=== PATIENT | male | born 1935 | race Caucasian/White ===

== ENCOUNTER 2017-03-07 08:43 | Inpatient (IN) | payer OTHER ==
[2017-03-07] MEDS ORDERED: levETIRAcetam 250 MG TABLET (FP) PO ONE (09:27)
[2017-03-07] MEDS ORDERED: levETIRAcetam 500 MG TABLET (FP) PO ONE (09:37)
[2017-03-07 09:38] LABS: BASO % 0.7 % (0-2.0); EOS % 1.3 % (0-4.5); MCH 30.7 pg (25.7-33.7); MCHC 34.5 g/dl (32.0-35.9); MEAN CELL VOLUME 88.9 fl (80-96); MEAN PLT VOLUME 8.1 fl (7.5-11.1); NEUT % 70.6 % (42.8-82.8); PLATELET COUNT 157 K/MM3 (134-434); RDW 14.3 % (11.9-15.9)
[2017-03-07 10:02] LABS: ALBUMIN 3.5 g/dl (3.4-5.0); ALK PHOS 80 U/L (45-117); ANION GAP 6 (8-16); BILIRUBIN,TOTAL 1.3 mg/dL (0.2-1.0); CALCIUM 8.6 mg/dL (8.5-10.1); CO2 27 mmol/L (21-32); CREATININE 0.8 mg/dL (0.7-1.3); GLUCOSE,RANDOM 103 mg/dL (74-106); SGOT/AST 12 U/L (15-37); SGPT/ALT 17 U/L (12-78); TOT PROT 6.4 g/dl (6.4-8.2)
--- NOTE | 2017-03-07 10:38 | PDOC ---
History of Present Illness <Charis Pettit - Last Filed: 03/07/17 12:33> - General History Source: Patient, Fdc Records Exam Limitations: No Limitations - History of Present Illness Initial Comments: 03/07/17 10:39 The patient is a 81 year old male from [facility] with a significant PMH of hypothyroidism, HTN, seizures (on Keppra), lung CA (s/p resection) and AFIB (s/p pacemaker) who presents to the emergency department via EMS s/p confusion and lethargy at approximately 7:15AM. As per longterm, the patients home health aide found the patient lethargic, confused, and unable to form full sentences as well as slightly slurring speech. The patient reports feeling confused himself this morning as well as a reduced appetite. The patient denies urinary or bowel incontinence. The patient denies tongue biting. The patient denies chest pain, shortness of breath, headache and dizziness. Denies fever, chills, nausea, vomit, diarrhea and constipation. Denies dysuria, frequency, urgency and hematuria. Allergies: NKA Past surgical history: Partial lung resection. Pacemaker placement. Social history: No reported cigarette, alcohol, or drug use. PCP: Dr. Miller / Dr. Meadows <Mykel Ding - Last Filed: 03/07/17 13:04> - General Chief Complaint: Seizure Stated Complaint: SEIZURE Time Seen by Provider: 03/07/17 08:53 NIH Stroke Scale - Last Known Well Date/Time & Onset Date Last Known Well: 03/06/17 Time Last Known Well: 22:00 - Initial Evaluation Level of consciousness: Alert Ask patient the month and their age: Answers both correctly Ask patient to open & close eyes; make fist and let go: Obeys both correctly Best gaze (horizontal eye movement): Normal Visual field testing: No visual field loss Facial paresis (Show teeth/raise eyebrows/close eyes tight): Normal symmetrical movement Motor Function: Left Arm: Normal Motor Function: Right Arm: Normal (extends arm 90 (or 45) degrees for 10 seconds without drift Motor Function: Left Leg: Normal (extends leg 30 degrees for 5 seconds without drift) Motor Function: Right Leg: Normal (extends leg 30 degrees for 5 seconds without drift) Limb Ataxia: No ataxia Sensory(Use pinprick test arms,legs,trunk,face/side to side): Normal Best language (Describe picture, name items, read sentences): No Aphasia Dysarthria (read several words): Normal articulation Extinction and Inattention: No abnormality - Total Score NIH Stroke Scale Score: 0 <Charis Pettit - Last Filed: 03/07/17 12:33> Past History - Past Medical History Cancer: Yes (LUNG CA, S/P RESECTION.) Cardiac Disorders: Yes (MVP. A FIB) COPD: No Hypercholesterolemia: Yes Psychiatric Problems: Yes (atypical psychosis) Seizures: Yes Thyroid Disease: Yes - Surgical History Cardiac Surgery: Yes (pacemaker) Cholecystectomy: No - Immunization History Td Vaccination: Yes - Suicide/Smoking/Psychosocial Hx Smoking Status: No Smoking History: Never smoked Years of Tobacco Use: 0 Have you smoked in the past 12 months: No Number of Cigarettes Smoked Daily: 0 Cigars Per Day: 0 Information on smoking cessation initiated: No Hx Alcohol Use: No Drug/Substance Use Hx: No Substance Use Type: None Hx Substance Use Treatment: No <Charis Pettit - Last Filed: 03/07/17 12:33> <Mykel Ding - Last Filed: 03/07/17 13:04> - Past Medical History Allergies/Adverse Reactions: Allergies Allergy/AdvReac Type Severity Reaction Status Date / Time No Known Allergies Allergy Verified 01/18/16 16:12 Home Medications: Ambulatory Orders Ascorbate Calcium [Vitamin C] 500 mg PO BID 04/27/14 Cholecalciferol (Vitamin D3) [Vitamin D3] 1,000 mg PO DAILY 04/27/14 Levetiracetam [Keppra -] 750 mg PO BID 04/27/14 Levothyroxine [Synthroid -] 100 mcg PO DAILY 04/27/14 Mirtazapine [Remeron -] 7.5 mg PO DAILY 04/27/14 Multivitamins [Multivit ([facility] Formulary)] 1 tab PO DAILY 04/27/14 Risperidone 0.25 mg PO BID 04/27/14 Acetaminophen [Tylenol] 325 mg PO BID 03/07/17 Review of Systems - Review of Systems Able to Perform ROS?: Yes Comments:: 03/07/17 10:39 GENERAL/CONSTITUTIONAL: (+) Lethargic. (+) Reduced appetite. No fever or chills. HEAD, EYES, EARS, NOSE AND THROAT: No change in vision. No ear pain or discharge. No sore throat. CARDIOVASCULAR: No chest pain or shortness of breath. RESPIRATORY: No cough, wheezing, or hemoptysis. GASTROINTESTINAL: No nausea, vomiting, diarrhea or constipation. GENITOURINARY: No dysuria, frequency, or change in urination. MUSCULOSKELETAL: No joint or muscle swelling or pain. No neck or back pain. SKIN: No rash NEUROLOGIC: (+) Confusion. (+) Slurred speech. No headache, vertigo, loss of consciousness. ENDOCRINE: No increased thirst. No abnormal weight change. HEMATOLOGIC/LYMPHATIC: No anemia, easy bleeding, or history of blood clots. ALLERGIC/IMMUNOLOGIC: No hives or skin allergy. <Mykel Ding - Last Filed: 03/07/17 13:04> *Physical Exam - Vital Signs Last Vital Signs Temp Pulse Resp BP Pulse Ox 98.5 F 71 16 149/89 99 03/07/17 08:50 03/07/17 08:50 03/07/17 08:50 03/07/17 08:50 03/07/17 08:50 <Charis Pettit - Last Filed: 03/07/17 12:33> - Vital Signs Last Vital Signs Temp Pulse Resp BP Pulse Ox 98.5 F 71 16 149/89 99 03/07/17 08:50 03/07/17 08:50 03/07/17 08:50 03/07/17 08:50 03/07/17 08:50 - Physical Exam Comments: 03/07/17 10:39 GENERAL: (+) Thin. (+) Cachetic. Awake, alert, and fully oriented, in no acute distress HEAD: No signs of trauma EYES: PERRLA, EOMI, sclera anicteric, conjunctiva clear ENT: Auricles normal inspection, hearing grossly normal, nares patent, oropharynx clear without exudates. Moist mucosa NECK: Normal ROM, supple, no lymphadenopathy, JVD, or masses LUNGS: Breath sounds equal, clear to auscultation bilaterally. No wheezes, and no crackles HEART: Regular rate, normal S1 and S2, no murmurs, rubs or gallops ABDOMEN: Soft, nontender, normoactive bowel sounds. No guarding, no rebound. No masses EXTREMITIES: Normal range of motion, no edema. No clubbing or cyanosis. No cords, erythema, or tenderness NEUROLOGICAL: AO x3. Cranial nerves II through XII grossly intact. Normal speech. SKIN: Warm, Dry, normal turgor, no rashes or lesions noted. <Mykel Ding - Last Filed: 03/07/17 13:04> ED Treatment Course - LABORATORY CBC & Chemistry Diagram: 03/07/17 09:32 03/07/17 09:32 - ADDITIONAL ORDERS Additional order review: Laboratory Results 03/07/17 09:32 Sodium 140 Potassium 4.2 Chloride 107 Carbon Dioxide 27 Anion Gap 6 L BUN 24 H Creatinine 0.8 Creat Clearance w eGFR > 60 Random Glucose 103 D Calcium 8.6 Total Bilirubin 1.3 H D AST 12 L D ALT 17 Alkaline Phosphatase 80 Total Protein 6.4 Albumin 3.5 03/07/17 09:32 RBC 3.95 L MCV 88.9 MCHC 34.5 RDW 14.3 MPV 8.1 Neutrophils % 70.6 D Lymphocytes % 17.3 D Monocytes % 10.1 Eosinophils % 1.3 Basophils % 0.7 - Medications Given in the ED: ED Medications Discontinued Medications Generic Name Dose Route Start Last Admin Trade Name Freq PRN Reason Stop Dose Admin Levetiracetam 750 mg 03/07/17 09:27 03/07/17 09:38 Keppra - PO 03/07/17 09:28 750 mg ONCE ONE Administration <Charis Pettit - Last Filed: 03/07/17 12:33> - LABORATORY CBC & Chemistry Diagram: 03/07/17 09:32 03/07/17 09:32 - ADDITIONAL ORDERS Additional order review: Laboratory Results 03/07/17 09:32 Sodium 140 Potassium 4.2 Chloride 107 Carbon Dioxide 27 Anion Gap 6 L BUN 24 H Creatinine 0.8 Creat Clearance w eGFR > 60 Random Glucose 103 D Calcium 8.6 Total Bilirubin 1.3 H D AST 12 L D ALT 17 Alkaline Phosphatase 80 Total Protein 6.4 Albumin 3.5 03/07/17 09:32 RBC 3.95 L MCV 88.9 MCHC 34.5 RDW 14.3 MPV 8.1 Neutrophils % 70.6 D Lymphocytes % 17.3 D Monocytes % 10.1 Eosinophils % 1.3 Basophils % 0.7 - Medications Given in the ED: ED Medications Discontinued Medications Generic Name Dose Route Start Last Admin Trade Name Karishma PRN Reason Stop Dose Admin Levetiracetam 750 mg 03/07/17 09:27 03/07/17 09:38 Keppra - PO 03/07/17 09:28 750 mg ONCE ONE Administration - Additional Consults Consult/PCP: Dr. Collado (Neurology) <Mykel Ding - Last Filed: 03/07/17 13:04> Medical Decision Making - Medical Decision Making 03/07/17 11:22 Pt presents to the ED after found in bed with transient episode of confusion. History of seizure disorder for which he takes keppra. No tongue biting, bowel or bladder incontinence. Now is alert and oriented and neurologically intact. Morning dose of keppra given. Labs checked to rule out electrolyte disturbance and are negative. 03/07/17 11:32 03/07/17 12:[address] Montenegro, who is injection molding technician for Dr. Meadows. She is concerned that the patient's symptoms may represent TIA, and would like the patient admitted for TIA work up. Patient has pacemaker, so will not order MRI. <Charis Pettit - Last Filed: 03/07/17 12:33> *DC/Admit/Observation/Transfer - Discharge Dispostion Admit: Yes <Charis Pettit - Last Filed: 03/07/17 12:33> - Attestations Scribe Attestion: 03/07/17 10:39 Documentation prepared by Mykel Ding, acting as medical record technician for Charis Pettit MD. <Mykel Ding - Last Filed: 03/07/17 13:04> Diagnosis at time of Disposition: TIA (transient ischemic attack) Qualifiers: Transient cerebral ischemia type: other Qualified Code(s): G45.8 - Other transient cerebral ischemic attacks and related syndromes - Discharge Dispostion Disposition: HOME Condition at time of disposition: Good
--- NOTE | 2017-03-07 13:56 | HP ---
Admitting History and Physical - Primary Care Physician PCP: Haroldo Meadows - Admission History of Present Illness: The patient is a 81 year old male from [facility] [place] with a significant PMH of hypothyroidism, HTN, seizures (on Keppra), lung CA (s/p resection) and AFIB (s/p pacemaker) who presents to the emergency department via EMS s/p confusion and lethargy at approximately 7:15AM. As per group home, the patients home health aide found the patient lethargic, confused, and unable to form full sentences as well as slightly slurring speech. The patient reports feeling confused himself this morning as well as a reduced appetite. The patient denies urinary or bowel incontinence. The patient denies tongue biting. The patient denies chest pain, shortness of breath, headache and dizziness. Denies fever, chills, nausea, vomit, diarrhea and constipation. Denies dysuria, frequency, urgency and hematuria. Allergies: NKA Past surgical history: Partial lung resection. Pacemaker placement. Social history: No reported cigarette, alcohol, or drug use. PCP: Dr. Miller / Dr. 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 Cardiovascular: Yes: AFIB Heme/Onc: Yes: Other (lung cancer) Endocrine: Yes: Hypothyroidism - Smoking History Smoking history: Never smoked Have you smoked in the past 12 months: No Aproximately how many cigarettes per day: 0 - Alcohol/Substance Use Hx Alcohol Use: No Home Medications - Allergies Allergies/Adverse Reactions: Allergies Allergy/AdvReac Type Severity Reaction Status Date / Time No Known Allergies Allergy Verified 01/18/16 16:12 - Home Medications Home Medications: Ambulatory Orders Ascorbate Calcium [Vitamin C] 500 mg PO BID 04/27/14 Cholecalciferol (Vitamin D3) [Vitamin D3] 1,000 mg PO DAILY 04/27/14 Levetiracetam [Keppra -] 750 mg PO BID 04/27/14 Levothyroxine [Synthroid -] 100 mcg PO DAILY 04/27/14 Mirtazapine [Remeron -] 7.5 mg PO DAILY 04/27/14 Multivitamins [Multivit ([facility] Formulary)] 1 tab PO DAILY 04/27/14 Risperidone 0.25 mg PO BID 04/27/14 Acetaminophen [Tylenol] 325 mg PO BID 03/07/17 Review of Systems - Review of Systems Constitutional: reports: Other Neurological: reports: Other (awake alert no slurring of speech able to move extermites) Physical Examination Vital Signs: Vital Signs Temperature 98.5 F 03/07/17 08:50 Pulse Rate 62 03/07/17 11:28 Respiratory Rate 14 03/07/17 11:28 Blood Pressure 129/92 03/07/17 11:28 O2 Sat by Pulse Oximetry (%) 100 03/07/17 11:28 patient seen in ER now talking full sentences able to move extremities feels tired Constitutional: Yes: Calm, Thin Cardiovascular: Yes: Regular Rate and Rhythm, S1, S2 Respiratory: Yes: CTA Bilaterally Gastrointestinal: Yes: Normal Bowel Sounds, Soft Edema: No Neurological: Yes: Alert, Oriented Labs: CBC, BMP 03/07/17 09:32 03/07/17 09:32 Imaging - Results Cat Scan: Pending Problem List - Problems (1) TIA (transient ischemic attack) Assessment/Plan: observation admission neuro checks neurolgy evaluation given history of afib and seizure will admit for obsevation carotid doppler echo dvt ppx if all test are ok and no changes in mental status seen like seizure or slurring of speech then will send back tmw patient has a pacemaker on [facility] check level Code(s): G45.9 - TRANSIENT CEREBRAL ISCHEMIC ATTACK, UNSPECIFIED Qualifiers: Transient cerebral ischemia type: other Qualified Code(s): G45.8 - Other transient cerebral ischemic attacks and related syndromes (2) Hypothyroid Assessment/Plan: check tsh on synthroid Code(s): E03.9 - HYPOTHYROIDISM, UNSPECIFIED
[2017-03-07] MEDS: risperiDONE 0.25 MG TABLET (FP) PO SCH (22:15)
[2017-03-07] MEDS: MIRTAZAPINE 15 MG TABLET (FP) PO SCH (22:15)
[2017-03-07] MEDS: levETIRAcetam 250 MG TABLET (FP) PO SCH (22:15)
[2017-03-07] MEDS: HEPARIN NA (PORCINE) 5,000 UNITS/ML 1ML VIAL SQ SCH (22:15)
[2017-03-08 01:03] VITALS: BMI 14.1
[2017-03-08] MEDS: LEVOTHYROXINE NA 100 MCG TABLET (FP) PO SCH (06:50)
[2017-03-08 08:06] LABS: INR 1.05 (0.82-1.09); PROTHROMBIN TIME (PATIENT) 11.9 SEC (9.98-11.88)
[2017-03-08 08:08] LABS: ACTIVATED PTT 28.9 SECONDS (26.9-34.4)
[2017-03-08 08:09] LABS: ALBUMIN 3.5 g/dl (3.4-5.0); ANION GAP 8 (8-16); CALCIUM 9.3 mg/dL (8.5-10.1); CO2 27 mmol/L (21-32); GLUCOSE,RANDOM 91 mg/dL (74-106); MAGNESIUM 1.8 mg/dL (1.8-2.4); SGOT/AST 11 U/L (15-37); SGPT/ALT 15 U/L (12-78)
[2017-03-08 08:12] LABS: ALK PHOS 76 U/L (45-117); BILIRUBIN,TOTAL 1.4 mg/dL (0.2-1.0); CREATININE 0.8 mg/dL (0.7-1.3); TOT PROT 6.2 g/dl (6.4-8.2)
[2017-03-08 09:19] LABS: THYROID STIMULATING HORMONE 2.08 uIU/ml (0.358-3.74)
--- NOTE | 2017-03-08 09:54 | CON.NEURO ---
Consult - History of Present Illness History of Present Illness: 81 year old male [place] resident , history of Hypothyroidism, htn seizure ( last seizure 20 year ago), Lung cancer, atrial fibrillation( pacemaker). He has episode of confusion and now back to baseline. He is not mobile at [place]. 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 Cardio/Vascular: Yes: AFIB Endocrine: Yes: Hypothyroidism - Alcohol/Substance Use Hx Alcohol Use: No - Smoking History Smoking history: Never smoked Have you smoked in the past 12 months: No Aproximately how many cigarettes per day: 0 Home Medications - Allergies Allergies/Adverse Reactions: Allergies Allergy/AdvReac Type Severity Reaction Status Date / Time No Known Allergies Allergy Verified 01/18/16 16:12 - Home Medications Home Medications: Ambulatory Orders Ascorbate Calcium [Vitamin C] 500 mg PO BID 04/27/14 Cholecalciferol (Vitamin D3) [Vitamin D3] 1,000 mg PO DAILY 04/27/14 Levetiracetam [Keppra -] 750 mg PO BID 04/27/14 Levothyroxine [Synthroid -] 100 mcg PO DAILY 04/27/14 Mirtazapine [Remeron -] 7.5 mg PO DAILY 04/27/14 Multivitamins [Multivit ([facility] Formulary)] 1 tab PO DAILY 04/27/14 Risperidone 0.25 mg PO BID 04/27/14 Acetaminophen [Tylenol] 325 mg PO BID PRN 03/07/17 Physical Exam-Neuro Vital Signs: Vital Signs Temperature 98.2 F 03/08/17 06:00 Pulse Rate 85 03/08/17 06:00 Respiratory Rate 16 03/08/17 06:00 Blood Pressure 150/79 03/08/17 06:00 O2 Sat by Pulse Oximetry (%) 96 03/07/17 20:00 Labs: CBC, BMP 03/07/17 09:32 03/08/17 06:00 INR, PTT INR 1.05 (0.82-1.09) 03/08/17 06:00 Imaging - Results Cat Scan: Report Reviewed Assessment/Plan cc came to hospital for confusion and difficulty talking for few hours HPI 81 year old male [place] resident , history of Hypothyroidism, htn seizure ( last seizure 20 year ago), Lung cancer, atrial fibrillation( pacemaker). He has episode of confusion and now back to baseline. He is not mobile at [place]. There was no tonic clonic acitivy or incontinence or tongue bite PMH as above He has history of atrial fibrillation and pacemaker and he is not on any statin or aspirin( ? probably refused ) Allergies: NKA Past surgical history: Partial lung resection. Pacemaker placement. Social history: Lives in [place] and denies toxi chabits NKDA -HOME Medication Ascorbate Calcium [Vitamin C] 500 mg PO BID 04/27/14 Cholecalciferol (Vitamin D3) [Vitamin D3] 1,000 mg PO DAILY 04/27/14 Levetiracetam [Keppra -] 750 mg PO BID 04/27/14 Levothyroxine [Synthroid -] 100 mcg PO DAILY 04/27/14 Mirtazapine [Remeron -] 7.5 mg PO DAILY 04/27/14 Multivitamins [Multivit ([facility] Formulary)] 1 tab PO DAILY 04/27/14 Risperidone 0.25 mg PO BID 04/27/14 Acetaminophen [Tylenol] 325 mg PO BID 03/07/17 ROS reviewed in chart Neurological Examination 150/79, VT 85, TEMP 98.2 AND RR 16 Alert and able to engage in conversation, speech is normal, and he feels he is back to how he was two days ago EOMI, pupils is reactive moving all extremity , severely deconditioned and loss of muscle mass sensation is normal grossly NIH score is 0 CT head is normal, carotid ultrasound is normal keppra level is pending Assessment-Most likely tia, he is on keppra for long time and he says last seizure was 20 years ago. 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
[2017-03-08] MEDS: HEPARIN NA (PORCINE) 5,000 UNITS/ML 1ML VIAL SQ SCH ×2 (10:01→22:48)
[2017-03-08] MEDS: risperiDONE 0.25 MG TABLET (FP) PO SCH ×2 (10:01→22:48)
[2017-03-08] MEDS: levETIRAcetam 250 MG TABLET (FP) PO SCH ×2 (10:01→22:48)
[2017-03-08 10:28] LABS: CPK 53 IU/L (39-308)
[2017-03-08 10:29] LABS: TROPONIN I < 0.02 ng/ml (0.00-0.05)
--- NOTE | 2017-03-08 11:36 | PN ---
Progress Note, Physician - Current Medication List Current Medications: Active Medications Heparin Sodium (Porcine) (Heparin -) 5,000 unit SQ BID [facility] Last Admin: 03/08/17 10:01 Dose: 5,000 unit Levetiracetam (Keppra -) 750 mg PO BID [facility] Last Admin: 03/08/17 10:01 Dose: 750 mg Levothyroxine Sodium (Synthroid -) 100 mcg PO DAILY@0700 [facility] Last Admin: 03/08/17 06:50 Dose: 100 mcg Mirtazapine (Remeron -) 7.5 mg PO HS [facility] Last Admin: 03/07/17 22:15 Dose: 7.5 mg Risperidone (Risperdal -) 0.25 mg PO BID [facility] Last Admin: 03/08/17 10:01 Dose: 0.25 mg - Objective Vital Signs: Vital Signs Temperature 98.4 F 03/08/17 10:00 Pulse Rate 89 03/08/17 10:00 Respiratory Rate 18 03/08/17 10:00 Blood Pressure 103/66 03/08/17 10:00 O2 Sat by Pulse Oximetry (%) 96 03/07/17 20:00 Labs: CBC, BMP 03/07/17 09:32 03/08/17 06:00 INR, PTT INR 1.05 (0.82-1.09) 03/08/17 06:00 Problem List - Problems (1) Afib Assessment/Plan: start asa ekg will evaluate further ac cardio Code(s): I48.91 - UNSPECIFIED ATRIAL FIBRILLATION (2) Hypothyroid Assessment/Plan: Laboratory Tests 03/08/17 06:00 TSH 2.08 Code(s): E03.9 - HYPOTHYROIDISM, UNSPECIFIED (3) TIA (transient ischemic attack) Assessment/Plan: neuro checks neurolgy evaluation carotid doppler echo dvt ppx asa evaluate further ac patient has a pacemaker on keppra check level Code(s): G45.9 - TRANSIENT CEREBRAL ISCHEMIC ATTACK, UNSPECIFIED Qualifiers: Transient cerebral ischemia type: other Qualified Code(s): G45.8 - Other transient cerebral ischemic attacks and related syndromes (4) Cardiac pacemaker in situ Assessment/Plan: interrogation per cardio Code(s): Z95.0 - PRESENCE OF CARDIAC PACEMAKER
[2017-03-08] MEDS: ASPIRIN COATED 81 MG TABLET.EC PO SCH (13:13)
[2017-03-08 13:45] LABS: CHOLESTEROL 176 mg/dL (50-200)
--- NOTE | 2017-03-08 15:43 | CON.CARD ---
Consult Consult Specialty:: Cardiology - History of Present Illness Chief Complaint: COnfusion. Afib History of Present Illness: 81 M with remote ho seizure, remote PPM placed per the patient in 1999 ( [employer]), possible history of heart surgery of unknown type, lung cancer post resection. Chronic Afib not on AC. He is admitted from residential after a transient bout of confusion. He is back to his baseline. He is able to ambulate short distances denies a history of falling, or bleeding. 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 Cardio/Vascular: Yes: AFIB Pulmonary: Yes: Cancer Endocrine: Yes: Hypothyroidism - Alcohol/Substance Use Hx Alcohol Use: No - Smoking History Smoking history: Never smoked Have you smoked in the past 12 months: No Aproximately how many cigarettes per day: 0 Home Medications - Allergies Allergies/Adverse Reactions: Allergies Allergy/AdvReac Type Severity Reaction Status Date / Time No Known Allergies Allergy Verified 01/18/16 16:12 - Home Medications Home Medications: Ambulatory Orders Ascorbate Calcium [Vitamin C] 500 mg PO BID 04/27/14 Cholecalciferol (Vitamin D3) [Vitamin D3] 1,000 mg PO DAILY 04/27/14 Levetiracetam [Keppra -] 750 mg PO BID 04/27/14 Levothyroxine [Synthroid -] 100 mcg PO DAILY 04/27/14 Mirtazapine [Remeron -] 7.5 mg PO DAILY 04/27/14 Multivitamins [Multivit ([facility] Formulary)] 1 tab PO DAILY 04/27/14 Risperidone 0.25 mg PO BID 04/27/14 Acetaminophen [Tylenol] 325 mg PO BID PRN 03/07/17 Review of Systems - Review of Systems Constitutional: reports: No Symptoms Eyes: reports: No Symptoms HENT: reports: No Symptoms Neck: reports: No Symptoms Cardiovascular: reports: No Symptoms Respiratory: reports: No Symptoms Gastrointestinal: reports: No Symptoms Integumentary: reports: No Symptoms Vital Signs: Vital Signs Temperature 98.1 F 03/08/17 14:06 Pulse Rate 81 03/08/17 14:06 Respiratory Rate 18 03/08/17 14:06 Blood Pressure 107/68 03/08/17 14:06 O2 Sat by Pulse Oximetry (%) 97 03/08/17 11:00 Constitutional: Yes: Cachectic Respiratory: Yes: Regular, Diminished Cardiovascular: Yes: Pulse Irregular, Other (Midline chest scar) Murmur: Yes: Systolic Murmur, Grade 2 Edema: No - Other Data Labs, Other Data: CBC, BMP 03/07/17 09:32 03/08/17 06:00 INR, PTT INR 1.05 (0.82-1.09) 03/08/17 06:00 Troponin, BNP 03/08/17 03/08/17 06:00 09:36 Troponin I < 0.02 Cancelled Troponin, BNP 03/08/17 03/08/17 06:00 09:36 Troponin I < 0.02 Cancelled Afib vent couplet, old IWMI Problem List - Problems (1) Afib Code(s): I48.91 - UNSPECIFIED ATRIAL FIBRILLATION (2) Cardiac pacemaker in situ Code(s): Z95.0 - PRESENCE OF CARDIAC PACEMAKER (3) TIA (transient ischemic attack) Code(s): G45.9 - TRANSIENT CEREBRAL ISCHEMIC ATTACK, UNSPECIFIED Qualifiers: Transient cerebral ischemia type: other Qualified Code(s): G45.8 - Other transient cerebral ischemic attacks and related syndromes Assessment/Plan 81 yo M with chronic afib, significant disability and cachexia, prior lung Ca, likely history of heart surgery (midline chest scar), remote ho PPM (he reports not having pacer checks). He is admitted with a possible TIA. -Afib is chronic and noted on priro ECGs. He appears to be rate controlled on telemetry. He is at high risk for recurrent TIA and CVA without AC however Given his disability, cachexia and poor balance he is at increased risk for adverse events as well. On balance, however, I would consider placing on anticoagulation as the benefits outweigh risks (Has-bled=2) Would DC ASA and Heparin and place on ELiquis 2.5mg BID -He may have PPM dysfunction. He has a [employer] PPM as per his recollection. Would interrogate PPM. -Echocardiogram
--- NOTE | 2017-03-08 21:54 | EKG ---
Test Reason : Blood Pressure : / mmHG Vent. Rate : 111 BPM Atrial Rate : 105 BPM P-R Int : 000 ms QRS Dur : 110 ms QT Int : 368 ms P-R-T Axes : 000 -47 002 degrees QTc Int : 500 ms ATRIAL FIBRILLATION WITH RAPID VENTRICULAR RESPONSE WITH PREMATURE VENTRICULAR OR ABERRANTLY CONDUCTED COMPLEXES LEFT ANTERIOR FASCICULAR BLOCK MARKED ST ABNORMALITY, POSSIBLE ANTERIOR SUBENDOCARDIAL INJURY ABNORMAL ECG WHEN COMPARED WITH ECG OF 07-MAR-2017 09:03, VENT. RATE HAS INCREASED BY 40 BPM LEFT ANTERIOR FASCICULAR BLOCK IS NOW PRESENT ST NOW DEPRESSED IN ANTEROLATERAL LEADS Confirmed by DEANNA PALENCIA MD ([id number]) on 03/08/2017 9:53:54 PM Referred By: Danna PRASAD Confirmed By:DEANNA PALENCIA MD
[2017-03-08] MEDS: MIRTAZAPINE 15 MG TABLET (FP) PO SCH (22:48)
[2017-03-08] MEDS: ATORVASTATIN CA 20 MG TABLET (FP) PO SCH (22:48)
[2017-03-09] MEDS: LEVOTHYROXINE NA 100 MCG TABLET (FP) PO SCH (06:01)
[2017-03-09] MEDS: ASPIRIN COATED 81 MG TABLET.EC PO SCH (09:11)
[2017-03-09] MEDS: HEPARIN NA (PORCINE) 5,000 UNITS/ML 1ML VIAL SQ SCH (09:11)
[2017-03-09] MEDS: risperiDONE 0.25 MG TABLET (FP) PO SCH ×2 (09:11→21:31)
[2017-03-09] MEDS: levETIRAcetam 250 MG TABLET (FP) PO SCH ×2 (09:12→21:30)
--- NOTE | 2017-03-09 11:13 | PN ---
Progress Note (short form) - Note Progress Note: cc came to hospital for confusion and difficulty talking for few hours 81 year old male [place] resident , history of Hypothyroidism, htn seizure ( last seizure 20 year ago), Lung cancer, atrial fibrillation( pacemaker). He has episode of confusion and now back to baseline. [place]. There was no tonic clonic acitivy or incontinence or tongue bite PMH as above He has history of atrial fibrillation and pacemaker and he is not on any statin or aspirin( ? probably refused ) He was seen by poultry veterinarian and was started on anticoagulation Neurological Examination Alert and able to engage in conversation, speech is normal, and he feels he is back to how he was two days ago EOMI, pupils is reactive moving all extremity , severely deconditioned and loss of muscle mass sensation is normal grossly NIH score is 0 CT head is normal, carotid ultrasound is normal, He Can not get MRI of brain keppra level is pending Assessment Likely TIA , Anticoagulation as per Hydrator. His Ct head and Carotid Ultrasound were normal. 2. History of Epilepsy and on keppra , Last seizure was 20 year ago. Plan- Continue Anticoagulation and Statin. -Dvt prophylaxis, Stroke education - For Seizures , He may be able to came off of AED as he has not had any seizure in 20 years. Discussed with patient, would consider outpatient. Thank you so much Paulo Collado MD
--- NOTE | 2017-03-09 13:22 | PN ---
Progress Note, Physician - Current Medication List Current Medications: Active Medications Aspirin (Ecotrin -) 81 mg PO DAILY [facility] Last Admin: 03/09/17 09:11 Dose: 81 mg Atorvastatin Calcium (Lipitor -) 20 mg PO HS [facility] Last Admin: 03/08/17 22:48 Dose: 20 mg Heparin Sodium (Porcine) (Heparin -) 5,000 unit SQ BID [facility] Last Admin: 03/09/17 09:11 Dose: 5,000 unit Levetiracetam (Keppra -) 750 mg PO BID [facility] Last Admin: 03/09/17 09:12 Dose: 750 mg Levothyroxine Sodium (Synthroid -) 100 mcg PO DAILY@0700 [facility] Last Admin: 03/09/17 06:01 Dose: 100 mcg Mirtazapine (Remeron -) 7.5 mg PO HS [facility] Last Admin: 03/08/17 22:48 Dose: 7.5 mg Risperidone (Risperdal -) 0.25 mg PO BID [facility] Last Admin: 03/09/17 09:11 Dose: 0.25 mg - Objective Vital Signs: Vital Signs Temperature 97.5 F L 03/09/17 09:07 Pulse Rate 86 03/09/17 09:07 Respiratory Rate 20 03/09/17 09:07 Blood Pressure 107/67 03/09/17 09:07 O2 Sat by Pulse Oximetry (%) 97 03/09/17 11:00 Cardiovascular: Yes: S1, S2 Respiratory: Yes: Regular, CTA Bilaterally Gastrointestinal: Yes: Normal Bowel Sounds, Soft Labs: CBC, BMP 03/07/17 09:32 03/08/17 06:00 INR, PTT INR 1.05 (0.82-1.09) 03/08/17 06:00 Problem List - Problems (1) Afib Assessment/Plan: dc asa ekg eliquis 2.5 bid cardio Code(s): I48.91 - UNSPECIFIED ATRIAL FIBRILLATION (2) Hypothyroid Assessment/Plan: Laboratory Tests 03/08/17 06:00 TSH 2.08 Code(s): E03.9 - HYPOTHYROIDISM, UNSPECIFIED (3) TIA (transient ischemic attack) Assessment/Plan: neuro checks neurolgy evaluation carotid doppler echo dvt ppx eliquis patient has a pacemaker on keppra check level Code(s): G45.9 - TRANSIENT CEREBRAL ISCHEMIC ATTACK, UNSPECIFIED Qualifiers: Transient cerebral ischemia type: other Qualified Code(s): G45.8 - Other transient cerebral ischemic attacks and related syndromes (4) Cardiac pacemaker in situ Assessment/Plan: interrogation per cardio Code(s): Z95.0 - PRESENCE OF CARDIAC PACEMAKER
[2017-03-09] MEDS: APIXABAN 2.5 MG TABLET PO SCH ×2 (13:56→21:31)
[2017-03-09] MEDS: MIRTAZAPINE 15 MG TABLET (FP) PO SCH (21:30)
[2017-03-09] MEDS: ATORVASTATIN CA 20 MG TABLET (FP) PO SCH (21:31)
[2017-03-10] MEDS: LEVOTHYROXINE NA 100 MCG TABLET (FP) PO SCH (06:07)
--- NOTE | 2017-03-10 09:01 | PN ---
Progress Note (short form) - Note Progress Note: cc came to hospital for confusion and difficulty talking for few hours 81 year old male [place] resident , history of Hypothyroidism, htn seizure ( last seizure 20 year ago), Lung cancer, atrial fibrillation( pacemaker). He has episode of confusion and now back to baseline. He is not mobile at [place]. There was no tonic clonic acitivy or incontinence or tongue bite He was seen by admissions specialist and was started on anticoagulation Neurological Examination Alert and able to engage in conversation, speech is normal, and he feels he is back to how he was two days ago EOMI, pupils is reactive moving all extremity , severely deconditioned and loss of muscle mass sensation is normal grossly NIH score is 0 CT head is normal, carotid ultrasound is normal, He Can not get MRI of brain because of pacemaker keppra level is pending A/P 1. Likely TIA , he was started on Eliquis by admissions specialist . His Ct head and Carotid Ultrasound were normal. cant get MRI of brain due to Pacemaker. 2. History of Epilepsy and on keppra , Last seizure was 20 year ago. consider tapering off as outpatinet Thank you so much Paulo Collado MD
[2017-03-10] MEDS: risperiDONE 0.25 MG TABLET (FP) PO SCH ×2 (11:35→21:34)
[2017-03-10] MEDS: levETIRAcetam 250 MG TABLET (FP) PO SCH ×2 (11:35→21:34)
[2017-03-10] MEDS: APIXABAN 2.5 MG TABLET PO SCH ×2 (11:36→21:34)
--- NOTE | 2017-03-10 11:44 | PN ---
Progress Note, Physician Chief Complaint: patient seen and examined got back from EEG and echo- report pending to get PPM interrogation done today - Current Medication List Current Medications: Active Medications Apixaban (Eliquis -) 2.5 mg PO BID [facility] Last Admin: 03/09/17 21:31 Dose: 2.5 mg Atorvastatin Calcium (Lipitor -) 20 mg PO [facility] Last Admin: 03/09/17 21:31 Dose: 20 mg Levetiracetam (Keppra -) 750 mg PO BID [facility] Last Admin: 03/09/17 21:30 Dose: 750 mg Levothyroxine Sodium (Synthroid -) 100 mcg PO DAILY@0700 [facility] Last Admin: 03/10/17 06:07 Dose: 100 mcg Mirtazapine (Remeron -) 7.5 mg PO [facility] Last Admin: 03/09/17 21:30 Dose: 7.5 mg Risperidone (Risperdal -) 0.25 mg PO BID [facility] Last Admin: 03/09/17 21:31 Dose: 0.25 mg - Objective Vital Signs: Vital Signs Temperature 97.6 F 03/10/17 10:00 Pulse Rate 78 03/10/17 10:00 Respiratory Rate 18 03/10/17 10:00 Blood Pressure 113/77 03/10/17 10:00 O2 Sat by Pulse Oximetry (%) 97 03/10/17 03:00 Constitutional: Yes: Calm Neck: Yes: Trachea Midline Cardiovascular: Yes: Regular Rate and Rhythm, S1, S2 Respiratory: Yes: CTA Bilaterally Gastrointestinal: Yes: Normal Bowel Sounds, Soft Edema: No Neurological: Yes: Alert, Oriented Labs: CBC, BMP 03/07/17 09:32 03/08/17 06:00 INR, PTT INR 1.05 (0.82-1.09) 03/08/17 06:00 Problem List - Problems (1) TIA (transient ischemic attack) Assessment/Plan: pacemaker check ct and carotid dopppler negative neuro input appreicate got eeg and echo done report pending awaiting PPM check today Code(s): G45.9 - TRANSIENT CEREBRAL ISCHEMIC ATTACK, UNSPECIFIED Qualifiers: Transient cerebral ischemia type: other Qualified Code(s): G45.8 - Other transient cerebral ischemic attacks and related syndromes (2) Hypothyroid Assessment/Plan: tsh ok on synthroid Code(s): E03.9 - HYPOTHYROIDISM, UNSPECIFIED Assessment/Plan sebastian send back to home tomorrow awaiting echo and eeg report and pacemaker interrogation advance diet to regular
--- NOTE | 2017-03-10 13:14 | PN ---
Problem List - Problems (1) TIA (transient ischemic attack) Code(s): G45.9 - TRANSIENT CEREBRAL ISCHEMIC ATTACK, UNSPECIFIED Qualifiers: Transient cerebral ischemia type: other Qualified Code(s): G45.8 - Other transient cerebral ischemic attacks and related syndromes (2) Hypothyroid Code(s): E03.9 - HYPOTHYROIDISM, UNSPECIFIED
--- NOTE | 2017-03-10 13:59 | PN ---
Progress Note, Physician Chief Complaint: The patient is comfortable and offers no new complaints. - Current Medication List Current Medications: Active Medications Apixaban (Eliquis -) 2.5 mg PO BID [facility] Last Admin: 03/10/17 11:36 Dose: 2.5 mg Atorvastatin Calcium (Lipitor -) 20 mg PO [facility] Last Admin: 03/09/17 21:31 Dose: 20 mg Levetiracetam (Keppra -) 750 mg PO BID [facility] Last Admin: 03/10/17 11:35 Dose: 750 mg Levothyroxine Sodium (Synthroid -) 100 mcg PO DAILY@0700 [facility] Last Admin: 03/10/17 06:07 Dose: 100 mcg Mirtazapine (Remeron -) 7.5 mg PO [facility] Last Admin: 03/09/17 21:30 Dose: 7.5 mg Risperidone (Risperdal -) 0.25 mg PO BID [facility] Last Admin: 03/10/17 11:35 Dose: 0.25 mg - Objective Vital Signs: Vital Signs Temperature 97.6 F 03/10/17 10:00 Pulse Rate 78 03/10/17 10:00 Respiratory Rate 18 03/10/17 10:00 Blood Pressure 113/77 03/10/17 10:00 O2 Sat by Pulse Oximetry (%) 97 03/10/17 03:00 Constitutional: Yes: No Distress, Calm, Cachectic Eyes: Yes: WNL, Conjunctiva Clear HENT: Yes: WNL, Atraumatic, Normocephalic Neck: Yes: WNL, Supple, Trachea Midline Cardiovascular: Yes: Bradycardia, Pulse Irregular, S1, S2 Respiratory: Yes: WNL, Regular, CTA Bilaterally Gastrointestinal: Yes: WNL, Normal Bowel Sounds, Soft ...Rectal Exam: Yes: Deferred Genitourinary: Yes: WNL Breast(s): Yes: WNL Musculoskeletal: Yes: WNL Extremities: Yes: WNL Edema: No Peripheral Pulses WNL: Yes Integumentary: Yes: WNL Neurological: Yes: WNL, Alert, Oriented Labs: CBC, BMP 03/07/17 09:32 03/08/17 06:00 INR, PTT INR 1.05 (0.82-1.09) 03/08/17 06:00 Assessment/Plan 81-year-old man, with chronic atrial fibrillation, presented with mental status changes. The patient is mentating better. He is well-oriented and is comfortable. Ventricular rates are fairly well controlled in atrial fibrillation. Intermittent demand pacing noted on telemetry. The echocardiogram showed mild systolic dysfunction. It was a technically limited study. Pacemaker interrogation is arranged for later today. Please continue present regimen. There is no need for further cardiac workup at this point. I will follow with you.
[2017-03-10] MEDS: ATORVASTATIN CA 20 MG TABLET (FP) PO SCH (21:34)
[2017-03-10] MEDS: MIRTAZAPINE 15 MG TABLET (FP) PO SCH (21:34)
[2017-03-11] MEDS: LEVOTHYROXINE NA 100 MCG TABLET (FP) PO SCH (07:00)
--- NOTE | 2017-03-11 08:48 | DS ---
Physical Examination Vital Signs: Vital Signs Temperature 98.0 F 03/11/17 01:32 Pulse Rate 61 03/11/17 01:32 Respiratory Rate 20 03/11/17 01:32 Blood Pressure 121/82 03/11/17 01:32 O2 Sat by Pulse Oximetry (%) 97 03/10/17 21:00 Findings/Remarks: sitting up no complaints Cardiovascular: Yes: S1, S2 Respiratory: Yes: Regular, CTA Bilaterally Gastrointestinal: Yes: Normal Bowel Sounds, Soft Labs: CBC, BMP 03/07/17 09:32 03/08/17 06:00 Discharge Summary Reason For Visit: TIA Current Active Problems Afib (Acute) Cardiac pacemaker in situ (Acute) Hypothyroid (Acute) TIA (transient ischemic attack) (Acute) Hospital Course: - Problems (1) TIA (transient ischemic attack) Assessment/Plan: pacemaker check ct and carotid Doppler negative neuro input appreciated got eeg and echo done report pending awaiting PPM check today Code(s): G45.9 - TRANSIENT CEREBRAL ISCHEMIC ATTACK, UNSPECIFIED Qualifiers: Transient cerebral ischemia type: other Qualified Code(s): G45.8 - Other transient cerebral ischemic attacks and related syndromes (2) Hypothyroid Assessment/Plan: tsh ok on synthroid Code(s): E03.9 - HYPOTHYROIDISM, UNSPECIFIED Assessment/Plan sebastian send back to home once results available awaiting echo and eeg report and pacemaker interrogation advance diet to regular ` Condition: Improved - Instructions Referrals: Randall Miller [Primary Care Provider] - Haroldo Meadows MD [Staff Physician] - Disposition: [facility] - Home Medications Comprehensive Discharge Medication List: Ambulatory Orders Ascorbate Calcium [Vitamin C] 500 mg PO BID 04/27/14 Cholecalciferol (Vitamin D3) [Vitamin D3] 1,000 mg PO DAILY 04/27/14 Levetiracetam [Keppra -] 750 mg PO BID 04/27/14 Levothyroxine [Synthroid -] 100 mcg PO DAILY 04/27/14 Mirtazapine [Remeron -] 7.5 mg PO DAILY 04/27/14 Multivitamins [Multivit ([facility] Formulary)] 1 tab PO DAILY 04/27/14 Risperidone 0.25 mg PO BID 04/27/14 Acetaminophen [Tylenol] 325 mg PO BID PRN 03/07/17 Apixaban [Eliquis -] 2.5 mg PO BID tablet 03/11/17 Atorvastatin Ca [Lipitor] 20 mg PO HS tablet 03/11/17
[2017-03-11] MEDS: levETIRAcetam 250 MG TABLET (FP) PO SCH ×2 (09:59→21:20)
[2017-03-11] MEDS: APIXABAN 2.5 MG TABLET PO SCH ×2 (10:00→21:21)
[2017-03-11] MEDS: risperiDONE 0.25 MG TABLET (FP) PO SCH ×2 (10:00→21:20)
--- NOTE | 2017-03-11 13:21 | PN ---
Progress Note, Physician Chief Complaint: Transient ischemic attack History of Present Illness: Transient ischemic attack - Current Medication List Current Medications: Active Medications Apixaban (Eliquis -) 2.5 mg PO BID [facility] Last Admin: 03/11/17 10:00 Dose: 2.5 mg Atorvastatin Calcium (Lipitor -) 20 mg PO [facility] Last Admin: 03/10/17 21:34 Dose: 20 mg Levetiracetam (Keppra -) 750 mg PO BID [facility] Last Admin: 03/11/17 09:59 Dose: 750 mg Levothyroxine Sodium (Synthroid -) 100 mcg PO DAILY@0700 [facility] Last Admin: 03/11/17 07:00 Dose: 100 mcg Mirtazapine (Remeron -) 7.5 mg PO [facility] Last Admin: 03/10/17 21:34 Dose: 7.5 mg Risperidone (Risperdal -) 0.25 mg PO BID [facility] Last Admin: 03/11/17 10:00 Dose: 0.25 mg - Objective Vital Signs: Vital Signs Temperature 98.0 F 03/11/17 01:32 Pulse Rate 61 03/11/17 01:32 Respiratory Rate 20 03/11/17 01:32 Blood Pressure 121/82 03/11/17 01:32 O2 Sat by Pulse Oximetry (%) 97 03/10/17 21:00 Constitutional: Yes: No Distress, Calm, Cachectic Eyes: Yes: WNL, Conjunctiva Clear HENT: Yes: WNL, Atraumatic, Normocephalic Neck: Yes: WNL, Supple, Trachea Midline Cardiovascular: Yes: WNL, Pulse Irregular, S1, S2 Respiratory: Yes: WNL, Regular, CTA Bilaterally Gastrointestinal: Yes: WNL, Normal Bowel Sounds, Soft ...Rectal Exam: Yes: Deferred Genitourinary: Yes: WNL Breast(s): Yes: WNL Musculoskeletal: Yes: WNL Extremities: Yes: WNL Edema: No Peripheral Pulses WNL: Yes Integumentary: Yes: WNL Neurological: Yes: WNL Psychiatric: Yes: WNL Labs: CBC, BMP 03/07/17 09:32 03/08/17 06:00 INR, PTT INR 1.05 (0.82-1.09) 03/08/17 06:00 Assessment/Plan The patient has been stable from the cardiac standpoint. He looks comfortable and offers no new complaints. The echocardiogram showed mild left ventricular systolic dysfunction. The pacemaker was interrogated okay. The patient is in atrial fibrillation. There is demand ventricular pacing. Ventricular rates are well controlled. The patient should continue the same medications. There is no need for further cardiac workup at this point. Low-sodium diet. Please do not hesitate to call us PRN.
--- NOTE | 2017-03-11 14:38 | EKG ---
Test Reason : Blood Pressure : / mmHG Vent. Rate : 071 BPM Atrial Rate : 066 BPM P-R Int : 000 ms QRS Dur : 106 ms QT Int : 446 ms P-R-T Axes : 000 -09 -32 degrees QTc Int : 484 ms ATRIAL FIBRILLATION SEPTAL INFARCT , AGE UNDETERMINED ABNORMAL ECG WHEN COMPARED WITH ECG OF 18-JAN-2016 16:44, SEPTAL INFARCT IS NOW PRESENT NONSPECIFIC T WAVE ABNORMALITY, WORSE IN INFERIOR LEADS T WAVE INVERSION LESS EVIDENT IN ANTERIOR LEADS Confirmed by CARROLL BAUM, MAGDA ([id number]) on 03/11/2017 2:38:18 PM Referred By: Confirmed By:MAGDA HODGES MD
--- NOTE | 2017-03-11 14:47 | PN ---
Progress Note (short form) - Note Progress Note: 81 year old male [place] resident , history of Hypothyroidism, htn seizure ( last seizure 20 year ago), Lung cancer, atrial fibrillation( pacemaker). He has episode of confusion and now back to baseline. He is not mobile at [place]. There was no tonic clonic acitivy or incontinence or tongue bite He was seen by abatement worker and was started on anticoagulation Neurological Examination Alert and able to engage in conversation, speech is normal, and he feels he is back to how he was two days ago EOMI, pupils is reactive moving all extremity , severely deconditioned and loss of muscle mass sensation is normal grossly NIH score is 0 CT head is normal, carotid ultrasound is normal, He Can not get MRI of brain because of pacemaker A/P 1. Likely TIA , he was started on Eliquis by abatement worker . His Ct head and Carotid Ultrasound were normal. cant get MRI of brain due to Pacemaker. 2. History of Epilepsy and on keppra , Last seizure was 20 year ago. consider tapering off as outpatient He has been stable, and No new issue Neuro point of view. Thank you so much Paulo Collado MD
[2017-03-11] MEDS: MIRTAZAPINE 15 MG TABLET (FP) PO SCH (21:20)
[2017-03-11] MEDS: ATORVASTATIN CA 20 MG TABLET (FP) PO SCH (21:20)
[2017-03-12] MEDS: LEVOTHYROXINE NA 100 MCG TABLET (FP) PO SCH (05:59)
--- NOTE | 2017-03-12 08:40 | PN ---
Progress Note (short form) - Note Progress Note: 81 year old male [place] resident , history of Hypothyroidism, htn seizure ( last seizure 20 year ago), Lung cancer, atrial fibrillation( pacemaker). He has episode of confusion and now back to baseline. He is not mobile at [place]. There was no tonic clonic acitivy or incontinence or tongue bite no new complain , waiting for placement He was seen by picker and was started on anticoagulation Neurological Examination Alert and able to engage in conversation, speech is normal, and he feels he is back to how he was two days ago EOMI, pupils is reactive moving all extremity , severely deconditioned and loss of muscle mass sensation is normal grossly NIH score is 0 CT head is normal, carotid ultrasound is normal, He Can not get MRI of brain because of pacemaker A/P 1. Likely TIA , he was started on Eliquis by picker . His Ct head and Carotid Ultrasound were normal. cant get MRI of brain due to Pacemaker. 2. History of Epilepsy and on keppra , Last seizure was 20 year ago. consider tapering off as outpatient He has been stable, and No new issue Neuro point of view. waiting for placement PT was ordered Thank you so much Paulo Collado MD
[2017-03-12] MEDS: risperiDONE 0.25 MG TABLET (FP) PO SCH ×2 (09:03→21:26)
[2017-03-12] MEDS: levETIRAcetam 250 MG TABLET (FP) PO SCH ×2 (09:03→21:25)
[2017-03-12] MEDS: APIXABAN 2.5 MG TABLET PO SCH ×2 (09:03→21:26)
--- NOTE | 2017-03-12 09:35 | DS ---
Physical Examination Vital Signs: Vital Signs Temperature 97.5 F L 03/12/17 06:00 Pulse Rate 67 03/12/17 06:00 Respiratory Rate 18 03/12/17 06:00 Blood Pressure 134/78 03/12/17 06:00 O2 Sat by Pulse Oximetry (%) 97 03/11/17 20:40 Labs: CBC, BMP 03/07/17 09:32 03/08/17 06:00 Discharge Summary Reason For Visit: TIA Current Active Problems Afib (Acute) Cardiac pacemaker in situ (Acute) Hypothyroid (Acute) TIA (transient ischemic attack) (Acute) Hospital Course: The patient is a 81 year old male from [facility] with a significant PMH of hypothyroidism, HTN, seizures (on Keppra), lung CA (s/p resection) and AFIB (s/p pacemaker) who presents to the emergency department via EMS s/p confusion and lethargy at approximately 7:15AM. As per half-way, the patients home health aide found the patient lethargic, confused, and unable to form full sentences as well as slightly slurring speech. The patient reports feeling confused himself this morning as well as a reduced appetite. The patient denies urinary or bowel incontinence. The patient denies tongue biting. The patient denies chest pain, shortness of breath, headache and dizziness. Denies fever, chills, nausea, vomit, diarrhea and constipation. Denies dysuria, frequency, urgency and hematuria. Allergies: NKA Past surgical history: Partial lung resection. Pacemaker placement. Social history: No reported cigarette, alcohol, or drug use. - Problems - Problems (1) Afib Assessment/Plan: dc asa ekg eliquis 2.5 bid cardio Code(s): I48.91 - UNSPECIFIED ATRIAL FIBRILLATION (2) Hypothyroid Assessment/Plan: Laboratory Tests 03/08/17 06:00 TSH 2.08 Code(s): E03.9 - HYPOTHYROIDISM, UNSPECIFIED (3) TIA (transient ischemic attack) Assessment/Plan: pacemaker check OK ct and carotid Doppler negative neuro input appreciated got eeg and echo done -MILD REDUCED LV dvt ppx eliquis patient has a pacemaker on keppra check level Code(s): G45.9 - TRANSIENT CEREBRAL ISCHEMIC ATTACK, UNSPECIFIED Qualifiers: Transient cerebral ischemia type: other Qualified Code(s): G45.8 - Other transient cerebral ischemic attacks and related syndromes (4) Cardiac pacemaker in situ Assessment/Plan: interrogation per card--DONE OK Code(s): Z95.0 - PRESENCE OF CARDIAC PACEMAKER [facility] Condition: Improved - Instructions Referrals: Haroldo Meadows MD [Staff Physician] - Randall Miller [Primary Care Provider] - Disposition: [facility] - Home Medications Comprehensive Discharge Medication List: Ambulatory Orders Ascorbate Calcium [Vitamin C] 500 mg PO BID 04/27/14 Cholecalciferol (Vitamin D3) [Vitamin D3] 1,000 mg PO DAILY 04/27/14 Levetiracetam [Keppra -] 750 mg PO BID 04/27/14 Levothyroxine [Synthroid -] 100 mcg PO DAILY 04/27/14 Mirtazapine [Remeron -] 7.5 mg PO DAILY 04/27/14 Multivitamins [Multivit ([facility] Formulary)] 1 tab PO DAILY 04/27/14 Risperidone 0.25 mg PO BID 04/27/14 Acetaminophen [Tylenol] 325 mg PO BID PRN 03/07/17 Apixaban [Eliquis -] 2.5 mg PO BID tablet 03/11/17 Atorvastatin Ca [Lipitor] 20 mg PO HS tablet 03/11/17
[2017-03-12] MEDS: MIRTAZAPINE 15 MG TABLET (FP) PO SCH (21:25)
[2017-03-12] MEDS: ATORVASTATIN CA 20 MG TABLET (FP) PO SCH (21:26)
[2017-03-13] MEDS: LEVOTHYROXINE NA 100 MCG TABLET (FP) PO SCH (06:00)
--- NOTE | 2017-03-13 08:58 | DS ---
Physical Examination Vital Signs: Vital Signs Temperature 98.6 F 03/13/17 06:00 Pulse Rate 78 03/13/17 06:00 Respiratory Rate 18 03/13/17 06:00 Blood Pressure 99/58 03/13/17 06:00 O2 Sat by Pulse Oximetry (%) 95 03/12/17 20:19 Findings/Remarks: no complaints Cardiovascular: Yes: Regular Rate and Rhythm Respiratory: Yes: Regular, CTA Bilaterally Gastrointestinal: Yes: Normal Bowel Sounds, Soft Edema: No Labs: CBC, BMP 03/07/17 09:32 03/08/17 06:00 Discharge Summary Reason For Visit: TIA Current Active Problems Afib (Acute) Cardiac pacemaker in situ (Acute) Hypothyroid (Acute) TIA (transient ischemic attack) (Acute) Hospital Course: The patient is a 81 year old male from [facility] with a significant PMH of hypothyroidism, HTN, seizures (on Keppra), lung CA (s/p resection) and AFIB (s/p pacemaker) who presents to the emergency department via EMS s/p confusion and lethargy at approximately 7:15AM. As per halfway, the patients home health aide found the patient lethargic, confused, and unable to form full sentences as well as slightly slurring speech. The patient reports feeling confused himself this morning as well as a reduced appetite. The patient denies urinary or bowel incontinence. The patient denies tongue biting. The patient denies chest pain, shortness of breath, headache and dizziness. Denies fever, chills, nausea, vomit, diarrhea and constipation. Denies dysuria, frequency, urgency and hematuria. Allergies: NKA Past surgical history: Partial lung resection. Pacemaker placement. Social history: No reported cigarette, alcohol, or drug use. - Problems - Problems (1) Afib Assessment/Plan: dc asa ekg eliquis 2.5 bid cardio Code(s): I48.91 - UNSPECIFIED ATRIAL FIBRILLATION (2) Hypothyroid Assessment/Plan: Laboratory Tests 03/08/17 06:00 TSH 2.08 Code(s): E03.9 - HYPOTHYROIDISM, UNSPECIFIED (3) TIA (transient ischemic attack) Assessment/Plan: pacemaker check OK ct and carotid Doppler negative neuro input appreciated got eeg and echo done -MILD REDUCED LV dvt ppx eliquis patient has a pacemaker on kera check level Code(s): G45.9 - TRANSIENT CEREBRAL ISCHEMIC ATTACK, UNSPECIFIED Qualifiers: Transient cerebral ischemia type: other Qualified Code(s): G45.8 - Other transient cerebral ischemic attacks and related syndromes (4) Cardiac pacemaker in situ Assessment/Plan: interrogation per card--DONE OK Code(s): Z95.0 - PRESENCE OF CARDIAC PACEMAKER Condition: Improved - Instructions Referrals: Haroldo Meadows MD [Staff Physician] - Randall Miller [Primary Care Provider] - [facility]position: [facility] - Home Medications Comprehensive Discharge Medication List: Ambulatory Orders Ascorbate Calcium [Vitamin C] 500 mg PO BID 04/27/14 Cholecalciferol (Vitamin D3) [Vitamin D3] 1,000 mg PO DAILY 04/27/14 Levetiracetam [Keppra -] 750 mg PO BID 04/27/14 Levothyroxine [Synthroid -] 100 mcg PO DAILY 04/27/14 Mirtazapine [Remeron -] 7.5 mg PO DAILY 04/27/14 Multivitamins [Multivit ([facility] Formulary)] 1 tab PO DAILY 04/27/14 Risperidone 0.25 mg PO BID 04/27/14 Acetaminophen [Tylenol] 325 mg PO BID PRN 03/07/17 Apixaban [Eliquis -] 2.5 mg PO BID tablet 03/11/17 Atorvastatin Ca [Lipitor] 20 mg PO HS tablet 03/11/17
--- NOTE | 2017-03-13 09:23 | PN ---
Progress Note (short form) - Note Progress Note: 81 year old male [place] resident , history of Hypothyroidism, htn seizure ( last seizure 20 year ago), Lung cancer, atrial fibrillation( pacemaker). He has episode of confusion and now back to baseline. He is not mobile at [place]. There was no tonic clonic acitivy or incontinence or tongue bite no new complain , waiting for placement He was seen by first aid director and was started on anticoagulation. N new complain today Neurological Examination Alert and able to engage in conversation, speech is normal, and he feels he is back to how he was two days ago EOMI, pupils is reactive moving all extremity , severely deconditioned and loss of muscle mass sensation is normal grossly NIH score is [address] head is normal, carotid ultrasound is normal, He Can not get MRI of brain because of pacemaker A/P 1. Likely TIA , he was started on Eliquis by first aid director . His Ct head and Carotid Ultrasound were normal. cant get MRI of brain due to Pacemaker. 2. History of Epilepsy and on keppra , Last seizure was 20 year ago. consider tapering off as outpatient Going to Rehab today, No new complain . PT was ordered Thank you so much Paulo Collado MD
[2017-03-13] MEDS: levETIRAcetam 250 MG TABLET (FP) PO SCH (10:31)
[2017-03-13] MEDS: risperiDONE 0.25 MG TABLET (FP) PO SCH (10:31)
[2017-03-13] MEDS: APIXABAN 2.5 MG TABLET PO SCH (10:31)
[2017-03-13 13:15] VITALS: BP 112/64; PULSE 72; TEMP 98.2
== END 2017-03-13 17:10 | disposition home or self-care (01) | DRG 69 ==
LOC: JER 08:43 → JERBED 12:33 → J4S 18:30 → OBSVTOIN 03-10 13:13
PROVIDERS: ADMIT Family Medicine; ATTEND Family Medicine
DX: G45.9 Transient cerebral ischemic attack, unspecified (principal); R64 Cachexia; Z68.1 Body mass index [BMI] 19.9 or less, adult; E03.9 Hypothyroidism, unspecified; I10 Essential (primary) hypertension; Z95.0 Presence of cardiac pacemaker; Z85.118 Personal history of other malignant neoplasm of bronchus and lung; I48.91 Unspecified atrial fibrillation
CPT/HCPCS: 36415; 70450-TC; 80053; 80061; 82550; 83721; 83735; 84443; 84484; 85025; 85610; 85730; 93005; 93010; 93306-TC; 93880-TC; 95816; 97116-GP; 97161-GP; 99285-25; G0378; J1644